=== PATIENT | male | born 1950 | race Caucasian/White ===

== ENCOUNTER → 2019-06-19 08:08 | Day surgery (SDC) | payer MEDICARE, OTHER ==
[~2019-06-19 08:08] MED LIST: Diazepam TAB(*) 5 MG ONE; Heparin 2 UNITS/ML IVPREMIX* 2,000 ML IV ONE; Heparin(*) 1000 UNIT/ML 10 ML VIAL CATH LAB IV ONE; Iohexol 350 (CONTRAST) 200 ML MDV IV ONE; Lidocaine 1% INJ* 10 MG/ML 30 ML SDV ONE; Magnesium Oxide TAB* 400 MG PO ONE; Magnesium Oxide TAB* 400 MG PO SCH; Metoprolol Tartrate TAB* 25 MG ONE; Midazolam* 1 MG/ML 5 ML VIAL (5 MG) ONE; NS 0.9% 1000 ML** 1,000 ML IV SCH; VERAPAMIL 2.5 MG/ML 2 ML VIAL ** 5 mg/2 ml ONE; diPHENhydraMINE PO* 25 MG ONE; fentaNYL* 50 MCG/ML 2 ML VIAL (100 MCG VIAL) ONE; nitroGLYCERIN DRIP* 25,000 MCG/250 ML BTL ONE
[2019-06-19 09:39] LABS: BUN/Creatinine Ratio 18.4 (8-20); Calcium 9.9 mg/dL (8.6-10.3); EGFR African American 92.3 (>60); EGFR Non-African American 76.3 (>60); Magnesium 1.8 mg/dL (1.9-2.7); Potassium 4.2 mmol/L (3.5-5.0)
[2019-06-19 13:22] VITALS: BP 141/91
--- NOTE | 2019-06-30 09:58 | CATH ---
CC: Dr. Roland Villa; Dr. Mykel Yoon * CARDIAC CATHETERIZATION REPORT: DATE OF PROCEDURE: 06/19/19 - [facility] CATH INDICATION FOR PROCEDURE: Asked by Dr. Mykel Yoon to assess the patient with reportedly an abnormal stress echo report, d during which time the patient developed runs of nonsustained ventricular tachycardia and showed left ventricular systolic dysfunction with exercise, which Dr. Yoon felt was a high risk stress test. Of note, the patient went to 7 minutes of standard Jim protocol. He had no significant ST-T wave changes. PROCEDURE: Coronary arteriography, left heart catheterization, left ventriculography. CONSENT: The patient was interviewed and examined in the holding area where the risks and benefits were explained. He understood them and wished to proceed. APPROACH UTILIZED: Of note, the right radial artery was assessed by ultrasound and felt to be acceptable for an approach and as such this was the approach utilized. PRECARDIAC CATHETERIZATION LABORATORY RESULTS: Hemoglobin and hematocrit of 15.3 and 44 with a platelet count of 170,000. BUN and creatinine of 18 and 1.0. Sodium 138, potassium 4.2, chloride 103, bicarb 26. EQUIPMENT UTILIZED: 1. Right radial artery sheath was a 6-[place] Glidesheath 16 cm left sheath. 2. Diagnostic coronary catheter was a TIG 4 curved 5-[place] coronary catheter. 3. Left heart catheterization catheter was a 5- [place] TIG short radial catheter. 4. The diagnostic guidewire with a 260 length [place] curved tipped guidewire. 5. The closure device was a regular sized Vasc Band by [employer]. MEDICATIONS GIVEN: During the procedure included the radial artery cocktail with 3000 units of heparin, 300 mcg of nitroglycerin, and 3 mg of verapamil. 1 % lidocaine was used for local anesthesia. DESCRIPTION OF PROCEDURE: The patient was brought to the cardiovascular laboratory where a formal time-out was performed. The patient was prepped and draped in sterile fashion, and as such the right radial artery area was anesthetized with 1% lidocaine. The radial artery was cannulated and the sheath was placed. Coronary arteriography was performed followed by left heart catheterization and left ventriculography utilizing a total of 28 cc of Omnipaque dye at a rate of 14 cc per second. Following this, the catheters and the sheaths were removed, and hemostasis was obtained with the a Vasc Band, the reverse Barbeau was a B. The total contrast used was 60 cc of Omnipaque dye. The radiation exposure included 3.8 minutes of fluoro time. The air kerma radiation was 870 milligray. The DAP radiation was 517 microgray per meter squared. RESULTS: HEMODYNAMIC DATA: Left heart catheterization - central aortic pressure recorded 125/61 with a mean of 86, left ventricular pressure 127 over left ventricular end- diastolic pressure of 16 to 17. LEFT VENTRICULOGRAPHY: Performed in the RAPHAEL projection revealed low normal left ventricular systolic function with overall ejection fraction approximately 55%. There was minimal focal mid anterior wall hypokinesis. There was no significant mitral regurgitation. CORONARY ARTERIOGRAPHY: A. Left coronary artery: 1. Left main widely patent. There is no significant narrowing seen. 2. Left anterior descending artery. The left anterior descending artery supplied a first and second diagonal branch and traversed to the apical region followed by smaller caliber distal diagonal branches. There was no significant stenosis seen throughout the course of it with a minimal 5 to 10% narrowing seen in the mid portion of the LAD. 3. Circumflex artery - a nondominant vessel supplying a small caliber first obtuse marginal branch with a moderate to large sized bifurcating second obtuse marginal branch and ending a low lying small caliber obtuse marginal branch. There was no significant disease seen throughout the course of the vessel. B. Right coronary artery - a dominant vessel supplying the PDA and 3 posterior left ventricular branches in addition to several acute marginal branches. There was no significant narrowing seen throughout the course of the vessel. OVERALL ASSESSMENT: No significant obstructive coronary artery disease noted with normal overall left ventricular systolic function as described above. This information was shared with Dr. Mykel Yoon, the patient's primary electric power machine operator, who will be following up for further management and recommendations regarding his cardiac management. [id number] #: [id number] [facility]
--- NOTE | 2019-06-30 14:17 | HP ---
CARDIAC CATHETERIZATION/HISTORY AND PHYSICAL: ADDENDUM: PAST MEDICAL HISTORY: Please refer to H and P, where it was indeed present. FAMILY HISTORY: Father had diabetes type 2, due to natural causes. Mother of multiple sclerosis. No significant primary cardiac disease. SOCIAL HISTORY: The patient is . Lives with his . He is retired. 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 [id number] #: [id number]
== END | disposition home or self-care (01) ==
LOC: CHICATH 08:08
PROVIDERS: ATTEND Internal Medicine Cardiovascular Disease
DX: R94.39 Abnormal result of other cardiovascular function study (principal); I47.2 Ventricular tachycardia; E78.00 Pure hypercholesterolemia, unspecified; R00.2 Palpitations; R94.31 Abnormal electrocardiogram [ECG] [EKG]; I10 Essential (primary) hypertension; Z87.891 Personal history of nicotine dependence; E78.5 Hyperlipidemia, unspecified; E11.9 Type 2 diabetes mellitus without complications; Z79.84 Long term (current) use of oral hypoglycemic drugs
CPT/HCPCS: 36415; 76937; 80048; 83735; 93458; A9270-GY; J1644; J2250; J3010